=== PATIENT | female | born 1995 | race American Indian/Alaskan Native ===

== ENCOUNTER 2021-11-13 06:06 | Emergency (ER) | payer SELFPAY ==
[2021-11-13] MEDS ORDERED: ACETAMINOPHEN 500 MG TAB PO ONE (11:27)
[2021-11-13] MEDS ORDERED: IBUPROFEN 600 MG TAB PO ONE (11:27)
--- NOTE | 2021-11-13 12:22 | XRay Report ---
THORACIC SPINE 3 VIEWS INDICATION / CLINICAL INFORMATION: Fell at work a day ago with thoracic back pain. COMPARISON: None available. FINDINGS: BONES / JOINT(S): The vertebral body heights and disc spaces are well-maintained. The pedicles are in tact. There is no evidence of acute fracture or subluxation. SOFT TISSUES: No significant abnormality. ADDITIONAL FINDINGS: The visualized lungs are clear. IMPRESSION: No acute findings. Signer Name: Aditya Eagle MD Signed: 11/13/2021 12:17 PM Workstation Name: [id number]
--- NOTE | 2021-11-13 12:23 | XRay Report ---
LUMBOSACRAL SPINE 3 VIEWS INDICATION / CLINICAL INFORMATION: Patient fell at work one day ago with lumbar back pain. COMPARISON: None available. FINDINGS: BONES / JOINT(S): The vertebral body heights and disc spaces are well-maintained. The pedicles are in tact and the SI joints are normal. There is no evidence of acute fracture or subluxation. SOFT TISSUES: No significant abnormality. ADDITIONAL FINDINGS: None. IMPRESSION: No acute findings. Signer Name: Aditya Eagle MD Signed: 11/13/2021 12:18 PM Workstation Name: [id number]
--- NOTE | 2021-11-13 13:19 | Emergency Department Report ---
ED Fall HPI - General Chief Complaint: Back Pain/Injury Stated Complaint: FALL/BACK PAIN Source: patient Mode of arrival: Ambulatory - History of Present Illness Initial Comments: Patient is a 26-year-old -[place] female with no past medical history presents to the ED with complaint of acute onset persistent right lateral shoulder muscle pain, mid posterior thoracic pain and low back pain after she slipped and fell down at work about 6 hours ago. Patient states that pain was initially mild but subsequently is a getting worse. Patient states that her pain is worse with any movement. Patient denies head or neck injuries, dizziness, syncope, seizures, chest pain or shortness of breath, abdominal pain, numbness and tingling or weakness of upper and lower extremities bilaterally, change in vision, loss of consciousness or headache. MD Complaint: fall, other (Mid and low back pain, right lateral shoulder pain) -: Sudden, hour(s) (6) Fall From: standing When Fall Occurred: 4-6 hours [employer] Fall Witnessed: yes, by bystander Place Fall Occurred: work Loss of Consciousness: none Prolonged Down Time?: no Symptoms Prior to Fall: none Location: back (Lower back, mid posterior thoracic area), other (Right lateral shoulder pain) Location - Extremities: Right: Shoulder (Right lateral shoulder pain) Severity: severe Severity scale (0 -10): 8 Quality: sharp, aching Context: tripped/slipped Associated Symptoms: headache. denies: denies, neck pain, numbness, weakness, chest paint, shortness of breath, abdominal pain, hematuria, lightheaded, vertigo, confusion, other - Related Data Previous Rx's Medication Instructions Recorded Last Taken Type Ibuprofen [Motrin] 800 mg PO Q8HR PRN #30 tablet 11/13/21 Unknown Rx tiZANidine [Zanaflex 4mg TAB] 4 mg PO Q8H PRN #15 tab 11/13/21 Unknown Rx ED Review of Systems ROS: Stated complaint: FALL/BACK PAIN Other details as noted in HPI Constitutional: denies: chills, fever Eyes: denies: eye pain, eye discharge, vision change ENT: denies: ear pain, throat pain Respiratory: denies: cough, shortness of breath, wheezing Cardiovascular: denies: chest pain, palpitations Endocrine: no symptoms reported Gastrointestinal: denies: abdominal pain, nausea, diarrhea Genitourinary: denies: urgency, dysuria, discharge Musculoskeletal: back pain (Mid and low back pain), arthralgia (Right lateral shoulder muscle pain), myalgia. denies: joint swelling Skin: denies: rash, lesions Neurological: denies: headache, weakness, paresthesias Psychiatric: denies: anxiety, depression Hematological/Lymphatic: denies: easy bleeding, easy bruising ED Past Medical Hx - Medications Home Medications: Home Medications Medication Instructions Recorded Confirmed Last Taken Type Ibuprofen [Motrin] 800 mg PO Q8HR PRN #30 tablet 11/13/21 Unknown Rx tiZANidine [Zanaflex 4mg TAB] 4 mg PO Q8H PRN #15 tab 11/13/21 Unknown Rx ED Physical Exam - General Limitations: No Limitations General appearance: alert, in no apparent distress - Head Head exam: Present: atraumatic, normocephalic, normal inspection - Eye Eye exam: Present: normal appearance, PERRL, EOMI Pupils: Present: normal accommodation - ENT ENT exam: Present: normal exam, normal orophraynx, mucous membranes moist, TM's normal bilaterally, normal external ear exam - Neck Neck exam: Present: normal inspection, full ROM. Absent: tenderness, meningismus - Respiratory Respiratory exam: Present: normal lung sounds bilaterally. Absent: respiratory distress, wheezes, rales, stridor, chest wall tenderness, accessory muscle use, decreased breath sounds, prolonged expiratory - Cardiovascular Cardiovascular Exam: Present: regular rate, normal rhythm, normal heart sounds. Absent: systolic murmur, diastolic murmur, rubs, gallop - GI/Abdominal GI/Abdominal exam: Present: soft, normal bowel sounds. Absent: tenderness, guarding, rebound, hyperactive bowel sounds, hypoactive bowel sounds, organomegaly - Extremities Exam Extremities exam: Present: normal inspection, full ROM, tenderness (Palpable right lateral shoulder muscle tenderness), normal capillary refill. Absent: p edal edema, joint swelling, calf tenderness - Back Exam Back exam: Present: normal inspection, full ROM, tenderness (Palpable mid posterior thoracic and lumbosacral paraspinal musculoskeletal tenderness), muscle spasm, paraspinal tenderness. Absent: CVA tenderness (R), CVA tenderness (L), vertebral tenderness - Neurological Exam Neurological exam: Present: alert, oriented X3, CN II-XII intact, normal gait, reflexes normal - Psychiatric Psychiatric exam: Present: normal affect, normal mood - Skin Skin exam: Present: warm, dry, intact, normal color. Absent: rash ED Course Vital Signs 11/13/21 06:38 Temperature 98.5 F Pulse Rate 81 Respiratory 18 Rate Blood Pressure 138/94 O2 Sat by Pulse 98 Oximetry ED Medical Decision Making - Radiology Data Radiology results: report reviewed, image reviewed [facility] [address] [place] [address] XRay Report Signed Patient: YARA QUICK MR #: [id number] : 1995 Acct:[id number] Age/Sex: 26 / F ADM Date: 11/13/21 Loc: ED Attending Dr: Ordering Physician: DERRELL MCNAMARA Date of Service: 11/13/21 Procedure(s): XR spine lumbosacral 2-3V Accession Number(s): [id number] cc: DERRELL MCNAMARA Fluoro Time In Minutes: LUMBOSACRAL SPINE 3 VIEWS INDICATION / CLINICAL INFORMATION: Patient fell at work one day ago with lumbar back pain. COMPARISON: None available. FINDINGS: BONES / JOINT(S): The vertebral body heights and disc spaces are well-m aintained. The pedicles are intact and the SI joints are normal. There is no evidence of acute fracture or subluxation. SOFT TISSUES: No significant abnormality. ADDITIONAL FINDINGS: None. IMPRESSION: No acute findings. Signer Name: Aditya Eagle MD Signed: 11/13/2021 12:18 PM Workstation Name: [id number] Transcribed By: RT Dictated By: Aditya Eagle MD Electronically Authenticated By: Aditya Eagle MD Signed Date/Time: 11/13/211217 DD/ 16 TD/TT: [facility] [address] [place] [address] XRay Report Signed Patient: YARA QUICK MR #: [id number] : 1995 Acct:[id number] Age/Sex: 26 / F ADM Date: 11/13/21 Loc: ED Attending Dr: Ordering Physician: DERRELL MCNAMARA Date of Service: 11/13/21 Procedure(s): XR spine thoracic 2V Accession Number(s): [id number] cc: DERRELL MCNAMARA Fluoro Time In Minutes: THORACIC SPINE 3 VIEWS INDICATION / CLINICAL INFORMATION: Fell at work a day ago with thoracic back pain. COMPARISON: None available. FINDINGS: BONES / JOINT(S): The vertebral body heights and disc spaces are well- maintained. The pedicles are intact. There is no evidence of acute fracture or subluxation. SOFT TISSUES: No significant abnormality. ADDITIONAL FINDINGS: The visualized lungs are clear. IMPRESSION: No acute findings. Signer Name: Aditya Eagle MD Signed: 11/13/2021 12:17 PM Workstation Name: [id number] Transcribed By: RT Dictated By: Aditya Eagle MD Electronically Authenticated By: Aditya Eagle MD Signed Date/Time: 11/13/211216 DD/ 15 TD/TT: - Medical Decision Making This is a 26-year-old -[place] female with no past medical history pres ents to the ED with complaint of acute onset persistent right lateral shoulder muscle pain, mid posterior thoracic pain and low back pain after she slipped and fell down at work about 6 hours ago. Patient states that pain was initially mild but subsequently is a getting worse. Patient states that her pain is worse with any movement. In the ED, patient is alert and oriented x3 and is not in any distress. Patient was treated for pain in the ED. The T-spine x-ray showed no acute fractures or subluxations. The L-spine x-ray also showed no acute fractures and subluxations. Based on the history and physical exam findings, the patient symptoms are likely musculoskeletal following a fall injury at work 6 hours ago. Patient was discharged home on pain medications and muscle relaxants and advised to follow-up with her primary care physician in 5 to 7 days for reevaluation or return to the ED immediately if symptoms get worse. - Differential Diagnosis Muscle spasm; muscle strain; shoulder muscle strain; back injury Critical care attestation.: If time is entered above; I have spent that time in minutes in the direct care of this critically ill patient, excluding procedure time. ED Disposition Clinical Impression: Spasm of muscle of lower back, Strain of muscle and tendon of back wall of t horax, initial encounter Muscle strain of right shoulder Qualifiers: Encounter type: initial encounter Qualified Code(s): S46.911A - Strain of unspecified muscle, fascia and tendon at shoulder and upper arm level, right arm, initial encounter Strain of sternocleidomastoid muscle Qualifiers: Encounter type: initial encounter Qualified Code(s): S16.1XXA - Strain of muscle, fascia and tendon at neck level, initial encounter Disposition: HOME / SELF CARE / HOMELESS Is pt being admited?: No Does the pt Need Aspirin: No Condition: Stable Instructions: Muscle Cramps and Spasms, [id number], Muscle Strain, [id number], Back Injury Prevention, [id number] Additional Instructions: All imaging reports were reviewed and are all nonactionable, no acute fractures or subluxation in the lumbar spine or thoracic spine. Therefore your injuries are likely musculoskeletal. Take medications with food, drink plenty of fluids and follow-up with your primary care physician in 7 to 10 days for reevaluation. Return to the ED immediately if symptoms get worse. Prescriptions: Ibuprofen [Motrin] 800 mg PO Q8HR PRN #30 tablet PRN Reason: Pain , Severe (7-10) tiZANidine [Zanaflex 4mg TAB] 4 mg PO Q8H PRN #15 tab PRN Reason: Muscle Spasm Referrals: LI IRIZARRY MD [Primary Care Provider] - 7-10 days Forms: Work/School Release Form(ED) Time of Disposition: 13:21 Print Language: CITIZEN OF [place]
[2021-11-13 14:53] VITALS: BP 141/85
== END 2021-11-13 14:52 | disposition home or self-care (01) ==
LOC: ED 06:06
DX: S16.1XXA Strain of muscle, fascia and tendon at neck level, initial encounter (principal); S13.8XXA Sprain of joints and ligaments of other parts of neck, initial encounter; S29.012A Strain of muscle and tendon of back wall of thorax, initial encounter; S39.012A Strain of muscle, fascia and tendon of lower back, initial encounter; S21.201A Unspecified open wound of right back wall of thorax without penetration into thoracic cavity, initial encounter; W01.0XXA Fall on same level from slipping, tripping and stumbling without subsequent striking against object, initial encounter; Y93.89 Activity, other specified; Y92.89 Other specified places as the place of occurrence of the external cause; Y99.0 Civilian activity done for income or pay
CPT/HCPCS: 72070; 72072; 72100; 99283